=== PATIENT | male | born 1960 | race Caucasian/White ===

== ENCOUNTER 2023-08-07 12:00 | Emergency (ER) | payer BC ==
[~2023-08-07] VITALS: Ht 167.6 cm; Wt 115.7 kg
[2023-08-07 12:23] VITALS: BP_SYST 161; PULSE 115; RESP 17; TEMP 97.7; O2SAT 95
[2023-08-07 12:57] VITALS: BP_SYST 162; PULSE 96; RESP 20; TEMP 98.1; O2SAT 95
== END 2023-08-07 12:58 | disposition home or self-care (01) ==
LOC: SED 12:00
DX: R33.9 Retention of urine, unspecified (principal); Z79.899 Other long term (current) drug therapy
CPT/HCPCS: 99284